=== PATIENT | female | born 1935 | race Caucasian/White ===

== ENCOUNTER 2017-02-04 13:20 | Inpatient (IN) | payer MEDICARE, BC ==
[~2017-02-04] VITALS: Ht 162.6 cm; Wt 46.3 kg
--- NOTE | 2017-02-04 13:40 | NUR ---
Pt is in room 1a, pt is confused and agitated and constantly attempting to get out of gurney. Son is at bedside, MSE pending.
[2017-02-04] MEDS ORDERED: LORAZEPAM 2 MG/1 ML VIAL IV ONE ×2 (14:15→15:00)
[2017-02-04] MEDS ORDERED: LORAZEPAM 2 MG/1 ML VIAL ONE ×3 (14:18→16:08)
[2017-02-04 14:46] LABS: BASOPHILS % (AUTO) 0.2 % (0.0-2.0); HEMATOCRIT 33.9 % (37-47); LYMPHOCYTES # (AUTO) 0.6 K/UL (0.8-4.8); MEAN CORPUSCULAR HEMOGLOBIN 31.6 UUG (27.0-31.0); MEAN CORPUSCULAR HGB CONC 33 g/dL (32.0-37.0); MEAN CORPUSCULAR VOLUME 96.9 FL (81.0-99.0); MONOCYTES # (AUTO) 0.7 K/UL (0.1-1.30); MONOCYTES % (AUTO) 15.3 % (0.0-11.0); NEUTROPHILS # (AUTO) 3.2 K/UL (1.8-8.9); NEUTROPHILS % (AUTO) 69.5 % (38.5-71.5); PLATELET COUNT (AUTO) 174 K/UL (150-450); WHITE BLOOD COUNT (AUTO) 4.5 K/UL (4.0-11.2)
[2017-02-04 14:48] LABS: CHLORIDE 107 mmol/L (98-107); CREATININE 0.8 mg/dL (0.6-1.3); GLUCOSE 96 mg/dL (74-106); POTASSIUM 4.2 mmol/L (3.5-5.1); UREA NITROGEN, BLOOD 29 mg/dL (7-18)
[2017-02-04 14:59] LABS: CARBON DIOXIDE 27 mmol/L (21-32)
[2017-02-04 15:02] LABS: *BILIRUBIN,URIN NEGATIVE (NEGATIVE); *BLOOD, URINE NEGATIVE (NEGATIVE); *CLARITY,URINE CLEAR (CLEAR); *COLOR,URINE DARK YELLOW (YELLOW); *KETONES,URINE 1+ (NEGATIVE); *PROTEIN,URINE NEGATIVE (NEGATIVE); *UROBILINOGEN,URINE 0.2 E.U./dl (NORMAL); LEUKOCYTE ESTERASE ,URINE NEGATIVE (NEGATIVE); NITRITE, URINE NEGATIVE (NEGATIVE); UGLUCOSE NEGATIVE (NEGATIVE)
[2017-02-04 15:04] LABS: ALKALINE PHOSPHATASE 30 U/L (50-136); BILIRUBIN,DIRECT 0.1 mg/dL (0.0-0.2); BILIRUBIN,TOTAL 0.5 mg/dL (0.1-1.0)
[2017-02-04 15:05] LABS: ALANINE AMINOTRANSFERASE 7 U/L (14-59); ASPARTATE AMINOTRANSFERASE 41 U/L (15-37); TOTAL PROTEIN, SERUM 5.8 g/dL (6.4-8.2)
[2017-02-04 15:21] LABS: RBC,URINE 0-3 /HPF (0-3); WBC,URINE 0-3 /HPF (0-3)
[2017-02-04 15:22] LABS: MUCUS,URINE MODERATE /LPF (0-FEW); SQUAMOUS EPITHELIAL CELL,UR FEW /HPF (NONE SEEN)
[2017-02-04] MEDS ORDERED: diphenhydrAMINE 50 MG/1 ML VIAL ONE (15:30)
[2017-02-04] MEDS ORDERED: diphenhydrAMINE 50 MG/1 ML VIAL IV ONE ×2 (15:30→16:00)
[2017-02-04 15:45] LABS: THYROID STIMULATING HORMONE 1.237 mIU/mL (0.358-3.740)
[2017-02-04] MEDS: LORAZEPAM 2 MG/1 ML VIAL IV ONE (15:59)
[2017-02-04] MEDS ORDERED: HALOPERIDOL LACTATE 5 MG/1 ML VIAL IV ONE (16:15)
[2017-02-04 16:22] LABS: BAND % (MANUAL) 5 % (0-10); EOSINOPHILS % (MANUAL) 2 % (0-8); LYMPHOCYTES % (MANUAL) 13 % (20-40); MONOCYTES % (MANUAL) 13 % (2-10); NEUTROPHILS % (MANUAL) 67 % (42-75)
[2017-02-04] MEDS ORDERED: HALOPERIDOL LACTATE 5 MG/1 ML VIAL ONE (16:32)
[2017-02-04] MEDS ORDERED: MEMA10TA PO (16:51)
[2017-02-04] MEDS ORDERED: MEGE400O PO (16:51)
[2017-02-04] MEDS ORDERED: MELO-105 PO (16:51)
[2017-02-04] MEDS ORDERED: MULT1TAB73 PO (16:51)
[2017-02-04] MEDS ORDERED: ENTA200T PO (16:51)
[2017-02-04] MEDS ORDERED: CHOL10005 PO (16:51)
[2017-02-04] MEDS ORDERED: GABA-532 PO (16:51)
[2017-02-04] MEDS ORDERED: QUET25TA PO ×3 (16:51)
[2017-02-04] MEDS ORDERED: CITA40TA11 PO (16:51)
[2017-02-04] MEDS ORDERED: CARB1TAB40 PO (16:51)
[2017-02-04] MEDS ORDERED: TRAZ-144 PO (16:55)
[2017-02-04] MEDS ORDERED: RIVA1PAT3 TP (16:55)
[2017-02-04] MEDS ORDERED: CYAN50008 SL (16:55)
--- NOTE | 2017-02-04 17:03 | NUR ---
Pt back from CT.
--- NOTE | 2017-02-04 17:56 | NUR ---
Per Dr Marroquin pt will be admitted to the hospital. Dr Marroquin spoke with pt's son about the plan of care. Son signed the patient property form and took all of pt's belongings home (including pt's w/c).
--- NOTE | 2017-02-04 18:15 | NUR ---
Per Dr Marroquin she spoke with Dr Tyson and pt may be admitted to tele. SBAR report given to Mesha DE LA ROSA via telephone.
--- NOTE | 2017-02-04 18:27 | NUR ---
Pt trans to tele, NAD noted.
--- NOTE | 2017-02-04 18:40 | NUR ---
ADMITTED VIA [facility]. CONFUSED & DEMENTED. ORIENTED TO ENVIRONMENT. UNABLE TO COMPREHEND.
[2017-02-04] MEDS ORDERED: TEMAZEPAM 15 MG CAPSULE PO PRN (19:00)
[2017-02-04] MEDS ORDERED: MAGNESIUM HYDROXIDE 30 ML LIQUID UDC PO PRN (19:00)
[2017-02-04] MEDS ORDERED: QUETIAPINE FUMARATE 25 MG TABLET PO PRN (19:00)
[2017-02-04] MEDS ORDERED: LORAZEPAM 2 MG/1 ML VIAL IV PRN (19:15)
[2017-02-04] MEDS ORDERED: TEMAZEPAM 7.5 MG CAPSULE PO PRN (19:30)
--- NOTE | 2017-02-04 19:30 | NUR ---
RECEIVED PT IN BED, ASLEEP BUT AROUSABLE TO TOUCH AND NAME. INITIATE ADMISSION ASSESSMENTS. BELONGING LIST REVIEWED. WILL REVIEW ORDERS.
[2017-02-04 20:12] VITALS: BP 117/52
[2017-02-04] MEDS: MEMANTINE HCL 10 MG TABLET PO SCH (20:47)
[2017-02-04] MEDS: ENTACAPONE 200 MG TABLET PO SCH (20:47)
[2017-02-04] MEDS: DOCUSATE SODIUM 100 MG CAPSULE PO SCH (20:47)
[2017-02-04] MEDS: GABAPENTIN 100 MG CAPSULE PO SCH (20:47)
[2017-02-04] MEDS: CARBIDOPA/LEVODOPA CR 50-200MG TABLET.SA PO SCH (20:49)
[2017-02-04] MEDS ORDERED: DOCUSATE SODIUM 250 MG CAPSULE PO SCH (21:00)
[2017-02-04] MEDS ORDERED: QUETIAPINE FUMARATE 25 MG TABLET PO SCH (21:00)
--- NOTE | 2017-02-04 22:00 | NUR ---
SON (dpoa) BROUGHT POLST FROM HOME, WANTS PT TO BE ON DNR/ DNI STATUS.
[2017-02-05 00:05] VITALS: BP 112/55
[2017-02-05 04:43] VITALS: BP 120/81
[2017-02-05] MEDS: PANTOPRAZOLE SODIUM 40 MG TABLET.DR PO SCH (06:04)
--- NOTE | 2017-02-05 06:30 | NUR ---
PT SLEEPING AT THIS TIME, AROUSABLE TO TOUCH. IN NO ACUTE SIGNS OF DISTRESS. NO EPISODES OF AGITATION. SON WAS HERE LAST NIGHT. ON TELE, SINUS ASHLEIGH, LOWEST WAS 44 BUT NOT SUSTAINED. IV SITE STILL INTACT. SAFETY MAINTAINED. BED ALARM ON.
[2017-02-05 07:36] LABS: BASOPHILS % (AUTO) 0.1 % (0.0-2.0); EOSINOPHILS # (AUTO) 0.1 K/uL (0.0-0.7); EOSINOPHILS % (AUTO) 2.2 % (0.0-7.0); HEMATOCRIT 34.4 % (37-47); HEMOGLOBIN 11.6 G/DL (12.0-16.0); LYMPHOCYTES # (AUTO) 0.7 K/UL (0.8-4.8); LYMPHOCYTES % (AUTO) 13.1 % (20.5-51.5); MEAN CORPUSCULAR HEMOGLOBIN 32.7 UUG (27.0-31.0); MEAN CORPUSCULAR HGB CONC 34 g/dL (32.0-37.0); MONOCYTES # (AUTO) 0.7 K/UL (0.1-1.30); MONOCYTES % (AUTO) 12.4 % (0.0-11.0); NEUTROPHILS # (AUTO) 4.2 K/UL (1.8-8.9); NEUTROPHILS % (AUTO) 72.2 % (38.5-71.5); PLATELET COUNT (AUTO) 165 K/UL (150-450); RED BLOOD CELL COUNT(AUTO) 3.55 MIL/UL (4.2-5.4)
[2017-02-05 07:38] LABS: WHITE BLOOD COUNT (AUTO) 5.7 K/UL (4.0-11.2)
--- NOTE | 2017-02-05 07:43 | NUR ---
RECEIVED PT ALERT WITH APPROPRIATE RESPONSE BUT WITH RESTLESSNESS AND TRYING TO GET OUT OF BED AND SINUS ASHLEIGH ON MONITOR. NO S/S OF SOB. SEROQUEL GIVEN FOR RESTLESSNESS AND WILL OBSERVE.
[2017-02-05 08:27] LABS: IRON, SERUM 79 ug/dL (50-175)
[2017-02-05 08:30] LABS: ALANINE AMINOTRANSFERASE 11 U/L (14-59); ALKALINE PHOSPHATASE 32 U/L (50-136); ASPARTATE AMINOTRANSFERASE 42 U/L (15-37); CARBON DIOXIDE 25 mmol/L (21-32); CHLORIDE 107 mmol/L (98-107); CHOLESTEROL 193 mg/dL (<200); CREATININE 0.7 mg/dL (0.6-1.3); GLUCOSE 75 mg/dL (74-106); HDL CHOLESTEROL 61 mg/dL (40-60); PHOSPHOROUS 2.8 mg/dL (2.5-4.9); POTASSIUM 3.7 mmol/L (3.5-5.1); TOTAL PROTEIN, SERUM 5.9 g/dL (6.4-8.2); TRIGLYCERIDES 61 MG/DL (30-150); UREA NITROGEN, BLOOD 19 mg/dL (7-18)
[2017-02-05] MEDS: CARBIDOPA/LEVODOPA CR 50-200MG TABLET.SA PO SCH ×3 (08:47→17:44)
[2017-02-05] MEDS: MEMANTINE HCL 10 MG TABLET PO SCH (08:47)
[2017-02-05] MEDS: ENTACAPONE 200 MG TABLET PO SCH ×3 (08:47→17:44)
[2017-02-05] MEDS: CHOLECALCIFEROL 1,000 UNIT TABLET PO SCH (08:47)
[2017-02-05] MEDS: ACETAMINOPHEN 325 MG TABLET PO PRN ×2 (08:49→21:01)
[2017-02-05] MEDS ORDERED: Medication Not On Formulary EA (Cholecalciferol (Vitamin D3) (Vitamin D CAPSULE) 1 CAP) PO SCH (09:00)
[2017-02-05] MEDS ORDERED: RIVASTIGMINE 9.5 MG/ 24 HR 9.5 MG PATCH TD SCH (09:00)
[2017-02-05] MEDS ORDERED: MELOXICAM 7.5 MG TABLET PO SCH (09:00)
[2017-02-05] MEDS ORDERED: MELOXICAM 7.5 MG TABLET PO PRN (09:00)
[2017-02-05 11:40] VITALS: BP 102/48
[2017-02-05 12:01] LABS: BILIRUBIN,TOTAL 0.6 mg/dL (0.2-1.0)
--- NOTE | 2017-02-05 13:00 | NUR ---
SEEN AND EXAMINED BY DR. LEAVITT SPOKE WITH SON ABOUT PLAN OF CARE. SEEN ALSO BY SPEECH THERAPY AND PT NOTED ABLE TO TOLERATE SOFT DIET AND THIN LIQUIDS.
--- NOTE | 2017-02-05 16:00 | NUR ---
NO ACUTE CHANGES. CONTINUE TELE OBSERVATION. SON AT BED SIDE VERY SUPPORTIVE WITH CARE.
[2017-02-05 16:15] VITALS: BP 101/59
[2017-02-05 20:00] VITALS: BP 109/57
[2017-02-05] MEDS ORDERED: HALOPERIDOL LACTATE 5 MG/1 ML VIAL IM PRN (21:00)
--- NOTE | 2017-02-05 21:00 | NUR ---
Seen & examined by Dr. Delcid (Psychiatrist). Patient's son in room.
[2017-02-05] MEDS: GABAPENTIN 100 MG CAPSULE PO SCH (21:01)
[2017-02-05] MEDS: DOCUSATE SODIUM 100 MG CAPSULE PO SCH (21:01)
[2017-02-06] VITALS: BP 110/49
[2017-02-06 04:00] VITALS: BP 113/48
[2017-02-06] MEDS: PANTOPRAZOLE SODIUM 40 MG TABLET.DR PO SCH (06:04)
[2017-02-06 08:28] LABS: BASOPHILS % (AUTO) 0.2 % (0.0-2.0); EOSINOPHILS # (AUTO) 0.1 K/uL (0.0-0.7); HEMATOCRIT 38.3 % (37-47); HEMOGLOBIN 12.9 G/DL (12.0-16.0); LYMPHOCYTES # (AUTO) 0.6 K/UL (0.8-4.8); LYMPHOCYTES % (AUTO) 8.9 % (20.5-51.5); MEAN CORPUSCULAR HEMOGLOBIN 32.3 UUG (27.0-31.0); MEAN CORPUSCULAR HGB CONC 34 g/dL (32.0-37.0); MONOCYTES # (AUTO) 0.8 K/UL (0.1-1.30); MONOCYTES % (AUTO) 12.1 % (0.0-11.0); NEUTROPHILS # (AUTO) 4.7 K/UL (1.8-8.9); NEUTROPHILS % (AUTO) 77.8 % (38.5-71.5); PLATELET COUNT (AUTO) 188 K/UL (150-450); RED BLOOD CELL COUNT(AUTO) 3.99 MIL/UL (4.2-5.4); WHITE BLOOD COUNT (AUTO) 6.2 K/UL (4.0-11.2)
[2017-02-06 08:42] LABS: CARBON DIOXIDE 28 mmol/L (21-32); CHLORIDE 105 mmol/L (98-107); CREATININE 0.9 mg/dL (0.6-1.3); GLUCOSE 84 mg/dL (74-106); MAGNESIUM 2.1 mg/dL (1.8-2.4); PHOSPHOROUS 2.8 mg/dL (2.5-4.9); POTASSIUM 3.3 mmol/L (3.5-5.1); UREA NITROGEN, BLOOD 15 mg/dL (7-18)
[2017-02-06] MEDS ORDERED: HALOPERIDOL 0.5 MG TABLET PO SCH (09:00)
[2017-02-06] MEDS: ENTACAPONE 200 MG TABLET PO SCH ×3 (09:10→18:05)
[2017-02-06] MEDS: CHOLECALCIFEROL 1,000 UNIT TABLET PO SCH (09:10)
[2017-02-06] MEDS: CARBIDOPA/LEVODOPA CR 50-200MG TABLET.SA PO SCH ×3 (09:10→18:05)
[2017-02-06] MEDS ORDERED: POTASSIUM PHOSPHATE MM 7.5 MMOL in IV DEXTROSE 5% 100 ML IV ONE (11:00)
[2017-02-06 12:52] VITALS: BP 127/60
[2017-02-06 16:24] VITALS: BP 131/56
--- NOTE | 2017-02-06 19:30 | NUR ---
End of shift note: pt is sleeping in bed comfortably. No s/s of respiratory distress noted, no pain noted. DVT pumps are on. Iv intact/patent. All safety needs are met. 1:1 sitter for safety, pt is calm and cooperative. Dr. Delcid and Dr. Borrego and Dr. Lozano saw the pt.
--- NOTE | 2017-02-06 20:00 | NUR ---
RECEIVED PATIENT AWAKE IN BED. ALERT TO SELF ONLY. CONFUSED AND DISORIENTED. NEEDS FREQUENT REDIRECTION. PATIENT TRIES TO CONSTANTLY GET OOB. SITTER AT BEDSIDE FOR SAFETY. BED ALARM ON. H/L INTACT AND PATENT. DENIES PAIN OR DISCOMFORT. NO RESP. DISTRESS NOTED. CALL LIGHT IN REACH, ALL NEEDS ATTENDED. WILL CONTINUE TO MONITOR AND ASSESS.
[2017-02-06] MEDS: DOCUSATE SODIUM 100 MG CAPSULE PO SCH (20:22)
[2017-02-06] MEDS: HALOPERIDOL 0.5 MG TABLET PO SCH (20:22)
[2017-02-06] MEDS: ACETAMINOPHEN 325 MG TABLET PO PRN (20:22)
[2017-02-06] MEDS: GABAPENTIN 100 MG CAPSULE PO SCH (20:22)
[2017-02-06 20:29] VITALS: BP 131/49
[2017-02-07 02:35] VITALS: BP 118/50
[2017-02-07 03:44] VITALS: BP 138/58
[2017-02-07] MEDS: PANTOPRAZOLE SODIUM 40 MG TABLET.DR PO SCH (06:36)
--- NOTE | 2017-02-07 06:55 | NUR ---
PATIENT AWAKE IN MERCED-CHAIR. VERY CONFUSED AND DISORIENTED. VSS. CALL LIGHT IN REACH. ALL NEEDS ATTENDED.
[2017-02-07] MEDS: HALOPERIDOL 0.5 MG TABLET PO SCH ×3 (08:28→17:53)
[2017-02-07] MEDS: CHOLECALCIFEROL 1,000 UNIT TABLET PO SCH (08:28)
[2017-02-07] MEDS: ENTACAPONE 200 MG TABLET PO SCH ×3 (08:28→17:53)
[2017-02-07] MEDS: CARBIDOPA/LEVODOPA CR 50-200MG TABLET.SA PO SCH ×3 (08:28→17:53)
[2017-02-07 09:00] VITALS: BP 118/66
[2017-02-07] MEDS ORDERED: QUETIAPINE FUMARATE 25 MG TABLET PO SCH (09:00)
[2017-02-07 15:30] VITALS: BP 124/55
--- NOTE | 2017-02-07 19:54 | NUR ---
PT IS SITTING ON A CHAIR COMFORTABLY. NO S/S OF RESPIRATORY DISTRESS NOTED. IV INTACT/PATENT. ALL SAFETY NEEDS ARE MET. SON IS BY THE PT.
--- NOTE | 2017-02-07 20:00 | NUR ---
PATIENT AWAKE, SITTING IN MERCED-CHAIR. PATIENT IS ALERT TO SELF. CONFUSED AND DISORIENTED, BUT CALM AND PLEASANT WHEN APPROACHED. SITTER AT BEDSIDE. VSS. NO S/S OF PAIN OR DISCOMFORT. NO RESP. DISTRESS NOTED. ALL NEEDS ATTENDED. WILL CONTINUE TO MONITOR.
[2017-02-07 20:30] VITALS: BP 125/56
[2017-02-07] MEDS: DOCUSATE SODIUM 100 MG CAPSULE PO SCH (20:33)
[2017-02-07] MEDS: GABAPENTIN 100 MG CAPSULE PO SCH (20:33)
[2017-02-07] MEDS ORDERED: HALO5VIA9 IM (20:40)
[2017-02-07] MEDS ORDERED: MEGE400O PO (20:40)
[2017-02-07] MEDS ORDERED: PANT40TA2 PO (20:40)
[2017-02-07] MEDS ORDERED: DOCU100C36 PO (20:40)
[2017-02-07] MEDS ORDERED: ACET325T53 PO (20:40)
[2017-02-07] MEDS ORDERED: TEMA7.5C PO (20:40)
[2017-02-07] MEDS ORDERED: MAGN400O6 PO (20:40)
[2017-02-07] MEDS ORDERED: HALO0.5T6 PO (20:40)
[2017-02-07] MEDS ORDERED: chlorproMAZINE 25 MG TABLET PO SCH (21:15)
--- NOTE | 2017-02-07 21:24 | NUR ---
REPORT GIVEN TO RN IN MENTAL HEALTH. VSS. PATIENT DISCHARGED TO MENTAL HEALTH IN STABLE CONDITION. .
[2017-02-08] MEDS ORDERED: chlorproMAZINE 25 MG TABLET PO SCH (13:00)
== END 2017-02-07 21:27 | DRG 92 ==
LOC: ER 13:20 → TELE 18:23 → MED 02-06 16:57
PROVIDERS: ADMIT Internal Medicine; ATTEND Internal Medicine
DX: G92 Toxic encephalopathy (principal); M80.08XA Age-related osteoporosis with current pathological fracture, vertebra(e), initial encounter for fracture; D68.59 Other primary thrombophilia; I31.3 Pericardial effusion (noninflammatory); G91.2 (Idiopathic) normal pressure hydrocephalus; E78.5 Hyperlipidemia, unspecified; G89.29 Other chronic pain; Z90.710 Acquired absence of both cervix and uterus; Z98.42 Cataract extraction status, left eye; Z98.41 Cataract extraction status, right eye; Z87.891 Personal history of nicotine dependence; Z88.6 Allergy status to analgesic agent; Z88.2 Allergy status to sulfonamides; R62.7 Adult failure to thrive; K59.00 Constipation, unspecified; K57.90 Diverticulosis of intestine, part unspecified, without perforation or abscess without bleeding; G31.83 Neurocognitive disorder with Lewy bodies; F02.80 Dementia in other diseases classified elsewhere, unspecified severity, without behavioral disturbance, psychotic disturbance, mood disturbance, and anxiety; J98.4 Other disorders of lung; I51.89 Other ill-defined heart diseases; Z86.73 Personal history of transient ischemic attack (TIA), and cerebral infarction without residual deficits; T43.95XA Adverse effect of unspecified psychotropic drug, initial encounter; Y92.239 Unspecified place in hospital as the place of occurrence of the external cause; Z82.49 Family history of ischemic heart disease and other diseases of the circulatory system; Z79.899 Other long term (current) drug therapy; F29 Unspecified psychosis not due to a substance or known physiological condition
CPT/HCPCS: 36415; 51702; 70030-TC; 70450; 71010; 83550; 83605; 83690; 83735; 84100; 84443; 85025; 85730; 86140; 87040; 87086; 92610; 93005; 93307; 97116; 97161; 97530; A4663; C1758; J1200; J1630; J2060; J3490; J7030; J7040; J7060

== ENCOUNTER 2017-02-07 22:12 | Inpatient (IN) | payer MEDICARE, BC ==
[~2017-02-07] VITALS: Ht 162.6 cm; Wt 42.6 kg
[~2017-02-07 22:12] MED LIST: ACET325T53 PO; CARB1TAB40 PO; CHOL10005 PO; CITA40TA11 PO; CYAN50008 SL; DOCU100C36 PO; ENTA200T PO; GABA-532 PO; HALO0.5T6 PO; HALO5VIA9 IM; MAGN400O6 PO; MEGE400O PO; MELO-105 PO; MEMA10TA PO; MULT1TAB73 PO; PANT40TA2 PO; QUET25TA PO; RIVA1PAT3 TP; TEMA7.5C PO; TRAZ-144 PO
[2017-02-07] MEDS ORDERED: MAG HYDROX/AL HYDROX/SIMETH 30 ML LIQUID UDC PO PRN (23:15)
[2017-02-07] MEDS ORDERED: ACETAMINOPHEN 325 MG TABLET PO PRN (23:15)
[2017-02-07] MEDS: TEMAZEPAM 7.5 MG CAPSULE PO PRN (23:39)
[2017-02-07] MEDS ORDERED: TEMAZEPAM 7.5 MG CAPSULE ONE (23:49)
[2017-02-07] MEDS: chlorproMAZINE 25 MG TABLET PO SCH (23:51)
[2017-02-08] MEDS ORDERED: chlorproMAZINE 25 MG TABLET ONE
[2017-02-08 00:39] VITALS: BP 120/61
--- NOTE | 2017-02-08 03:19 | NUR ---
NURSES NOTES/GPS; AT APPROX 2145 ON 02/07/14 PATIENT WAS ADMITTED TO GPS UNIT ROOM 138 BED A. PATIENT CAME FROM [facility] SURG SECOND FLOOR VIA MERCED CHAIR AND ACCOMPANIED BY RN AND SON BEAU GONZALEZ. ADMITTING DX AMS. REPORT WAS GIVEN BY RJ GAMA. PATIENT IS ON A 72HRS HOLD D/T GD. HOLD WILL BE UP ON 02/09/[address] TREVIÑO AND DR. BARRIENTOS WERE IN THE UNIT/HOSPITAL AT TIME OF ADMISSION.
[2017-02-08 07:30] VITALS: BP 122/56
[2017-02-08] MEDS: MULTIVITAMINS,THERAPEUTIC TABLET PO SCH (09:49)
[2017-02-08] MEDS: MEGESTROL ACETATE 400 MG/10 ML LIQUID UDC PO SCH (09:49)
[2017-02-08] MEDS: CHOLECALCIFEROL 1,000 UNIT TABLET PO SCH (09:49)
[2017-02-08] MEDS: CARBIDOPA/LEVODOPA CR 50-200MG TABLET.SA PO SCH ×3 (09:49→17:02)
[2017-02-08] MEDS: RIVASTIGMINE 9.5 MG/ 24 HR 9.5 MG PATCH TD SCH (09:49)
[2017-02-08] MEDS: PANTOPRAZOLE SODIUM 40 MG TABLET.DR PO SCH (09:55)
[2017-02-08] MEDS: ENTACAPONE 200 MG TABLET PO SCH ×3 (10:05→17:02)
[2017-02-08] MEDS: chlorproMAZINE 25 MG TABLET PO SCH ×3 (12:46→20:06)
[2017-02-08 15:51] VITALS: BP 109/52
[2017-02-08 20:06] VITALS: BP 106/62
[2017-02-08] MEDS: GABAPENTIN 100 MG CAPSULE PO SCH (20:06)
[2017-02-08] MEDS: DOCUSATE SODIUM 100 MG CAPSULE PO SCH (20:06)
[2017-02-08] MEDS: LORAZEPAM 1 MG TABLET PO PRN (21:55)
[2017-02-09] MEDS: TEMAZEPAM 7.5 MG CAPSULE PO PRN ×2 (00:36→23:23)
[2017-02-09] MEDS: PANTOPRAZOLE SODIUM 40 MG TABLET.DR PO SCH (06:29)
[2017-02-09 07:30] VITALS: BP 118/50
[2017-02-09] MEDS: RIVASTIGMINE 9.5 MG/ 24 HR 9.5 MG PATCH TD SCH (09:03)
[2017-02-09] MEDS: CARBIDOPA/LEVODOPA CR 50-200MG TABLET.SA PO SCH ×3 (09:03→16:20)
[2017-02-09] MEDS: MEGESTROL ACETATE 400 MG/10 ML LIQUID UDC PO SCH (09:03)
[2017-02-09] MEDS: CHOLECALCIFEROL 1,000 UNIT TABLET PO SCH (09:03)
[2017-02-09] MEDS: chlorproMAZINE 25 MG TABLET PO SCH ×3 (09:04→21:24)
[2017-02-09] MEDS: MULTIVITAMINS,THERAPEUTIC TABLET PO SCH (09:04)
[2017-02-09] MEDS: ENTACAPONE 200 MG TABLET PO SCH ×3 (09:04→16:20)
[2017-02-09] MEDS: MELOXICAM 7.5 MG TABLET PO PRN (15:41)
[2017-02-09 15:46] VITALS: BP 100/48
[2017-02-09 19:46] VITALS: BP 105/57
[2017-02-09] MEDS: DOCUSATE SODIUM 100 MG CAPSULE PO SCH (21:24)
[2017-02-09] MEDS: GABAPENTIN 100 MG CAPSULE PO SCH (21:24)
[2017-02-10] MEDS: LORAZEPAM 1 MG TABLET PO PRN (01:06)
[2017-02-10] MEDS: PANTOPRAZOLE SODIUM 40 MG TABLET.DR PO SCH (06:31)
--- NOTE | 2017-02-10 06:42 | NUR ---
GPS: Pt.only slept for about 3 1/2 hrs.last night despite taking sleeping pill. Restless and was trying to get out of bed for no reason. 1:1 sitter for safety. Assisted to the bathroom prn. Fall precautions observed. Reality re-orientation provided prn.
[2017-02-10 07:24] LABS: BASOPHILS % (AUTO) 0.2 % (0.0-2.0); EOSINOPHILS # (AUTO) 0.1 K/uL (0.0-0.7); EOSINOPHILS % (AUTO) 0.9 % (0.0-7.0); HEMATOCRIT 36.9 % (37-47); HEMOGLOBIN 12.6 G/DL (12.0-16.0); LYMPHOCYTES # (AUTO) 0.8 K/UL (0.8-4.8); LYMPHOCYTES % (AUTO) 10.5 % (20.5-51.5); MEAN CORPUSCULAR HEMOGLOBIN 32.8 UUG (27.0-31.0); MEAN CORPUSCULAR HGB CONC 34 g/dL (32.0-37.0); MEAN CORPUSCULAR VOLUME 96.1 FL (81.0-99.0); MONOCYTES # (AUTO) 1.1 K/UL (0.1-1.30); MONOCYTES % (AUTO) 14.1 % (0.0-11.0); NEUTROPHILS # (AUTO) 5.6 K/UL (1.8-8.9); NEUTROPHILS % (AUTO) 74.3 % (38.5-71.5); PLATELET COUNT (AUTO) 189 K/UL (150-450); RED BLOOD CELL COUNT(AUTO) 3.84 MIL/UL (4.2-5.4); WHITE BLOOD COUNT (AUTO) 7.6 K/UL (4.0-11.2)
[2017-02-10 07:30] VITALS: BP 115/52
[2017-02-10 07:41] LABS: ALANINE AMINOTRANSFERASE 6 U/L (14-59); ALKALINE PHOSPHATASE 41 U/L (50-136); ASPARTATE AMINOTRANSFERASE 24 U/L (15-37); BILIRUBIN,TOTAL 0.4 mg/dL (0.2-1.0); CARBON DIOXIDE 27 mmol/L (21-32); CHLORIDE 103 mmol/L (98-107); CREATININE 0.8 mg/dL (0.6-1.3); GLUCOSE 89 mg/dL (74-106); PHOSPHOROUS 2.5 mg/dL (2.5-4.9); POTASSIUM 3.6 mmol/L (3.5-5.1); TOTAL PROTEIN, SERUM 6.9 g/dL (6.4-8.2); UREA NITROGEN, BLOOD 20 mg/dL (7-18)
[2017-02-10] MEDS: ENTACAPONE 200 MG TABLET PO SCH ×3 (09:22→16:20)
[2017-02-10] MEDS: CHOLECALCIFEROL 1,000 UNIT TABLET PO SCH (09:22)
[2017-02-10] MEDS: CARBIDOPA/LEVODOPA CR 50-200MG TABLET.SA PO SCH ×3 (09:22→16:20)
[2017-02-10] MEDS: RIVASTIGMINE 9.5 MG/ 24 HR 9.5 MG PATCH TD SCH (09:22)
[2017-02-10] MEDS: MULTIVITAMINS,THERAPEUTIC TABLET PO SCH (09:22)
[2017-02-10] MEDS: MEGESTROL ACETATE 400 MG/10 ML LIQUID UDC PO SCH (09:23)
[2017-02-10] MEDS: chlorproMAZINE 25 MG TABLET PO SCH ×3 (09:23→20:27)
[2017-02-10 15:26] VITALS: BP 90/45
--- NOTE | 2017-02-10 15:47 | NUR ---
Initial discharge instructions: The patient resides at [facility] [[address] [place] [address]; ]. MOODY spoke with the patient's son Cristiano Palacio who stated that he would like for the patient to return to the [facility] upon discharge. Spoke with the business consult, Shanta Merino and she stated that they will accept the patient back once she is stable and ready for DC. MOODY will speak with the patient, family, and MD regarding most appropriate discharge plan. SS will form a safe and proper discharge.
[2017-02-10] MEDS: GABAPENTIN 100 MG CAPSULE PO SCH (20:27)
[2017-02-10] MEDS: DOCUSATE SODIUM 100 MG CAPSULE PO SCH (20:27)
[2017-02-10 20:56] VITALS: BP 103/54
[2017-02-11] MEDS: TEMAZEPAM 7.5 MG CAPSULE PO PRN (01:34)
[2017-02-11] MEDS: LORAZEPAM 1 MG TABLET PO PRN ×2 (02:28→21:55)
[2017-02-11] MEDS: PANTOPRAZOLE SODIUM 40 MG TABLET.DR PO SCH (06:18)
[2017-02-11] MEDS: CARBIDOPA/LEVODOPA CR 50-200MG TABLET.SA PO SCH ×3 (08:00→16:43)
[2017-02-11] MEDS: MEGESTROL ACETATE 400 MG/10 ML LIQUID UDC PO SCH (08:00)
[2017-02-11] MEDS: CHOLECALCIFEROL 1,000 UNIT TABLET PO SCH (08:00)
[2017-02-11] MEDS: MULTIVITAMINS,THERAPEUTIC TABLET PO SCH (08:00)
[2017-02-11] MEDS: RIVASTIGMINE 9.5 MG/ 24 HR 9.5 MG PATCH TD SCH (08:00)
[2017-02-11] MEDS: ENTACAPONE 200 MG TABLET PO SCH ×3 (08:00→16:43)
[2017-02-11] MEDS ORDERED: chlorproMAZINE 25 MG TABLET PO SCH ×2 (09:00→21:00)
[2017-02-11 09:19] VITALS: BP 117/57
[2017-02-11] MEDS: MAGNESIUM HYDROXIDE 30 ML LIQUID UDC PO PRN (09:30)
[2017-02-11 15:24] VITALS: BP 101/52
[2017-02-11 19:30] VITALS: BP 132/66
[2017-02-11] MEDS: GABAPENTIN 100 MG CAPSULE PO SCH (20:28)
[2017-02-11] MEDS: DOCUSATE SODIUM 100 MG CAPSULE PO SCH (20:28)
[2017-02-11] MEDS: QUETIAPINE FUMARATE 25 MG TABLET PO SCH (22:21)
[2017-02-11] MEDS ORDERED: QUETIAPINE FUMARATE 25 MG TABLET ONE (22:23)
[2017-02-12] MEDS: PANTOPRAZOLE SODIUM 40 MG TABLET.DR PO SCH (06:13)
[2017-02-12 07:30] VITALS: BP 103/42
[2017-02-12] MEDS: RIVASTIGMINE 9.5 MG/ 24 HR 9.5 MG PATCH TD SCH (09:19)
[2017-02-12] MEDS: MEGESTROL ACETATE 400 MG/10 ML LIQUID UDC PO SCH (09:19)
[2017-02-12] MEDS: QUETIAPINE FUMARATE 25 MG TABLET PO SCH ×2 (09:20→20:52)
[2017-02-12] MEDS: MULTIVITAMINS,THERAPEUTIC TABLET PO SCH (09:20)
[2017-02-12] MEDS: CHOLECALCIFEROL 1,000 UNIT TABLET PO SCH (09:20)
[2017-02-12] MEDS: CARBIDOPA/LEVODOPA CR 50-200MG TABLET.SA PO SCH ×3 (09:20→17:58)
[2017-02-12] MEDS: ENTACAPONE 200 MG TABLET PO SCH ×3 (09:21→17:58)
[2017-02-12 09:22] VITALS: BP 130/60
[2017-02-12 16:00] VITALS: BP 106/48
--- NOTE | 2017-02-12 19:11 | NUR ---
GPS/RN- SPOKE WITH DR BARRIENTOS REGARDING PRN ATIVAN CONCERN, SON WOULD LIKE HIS MOTHER THE PATIENT NOT TO BE ON ANY ATIVAN, PER DR BARRIENTOS OK TO DISCONTINUE ATIVAN PRN AND CONTINUE SEROQUEL 25MG Q6 HRS NEEDED FOR ANXIETY
[2017-02-12] MEDS ORDERED: QUETIAPINE FUMARATE 25 MG TABLET PO PRN (19:15)
[2017-02-12 20:16] VITALS: BP 96/55
[2017-02-12] MEDS: GABAPENTIN 100 MG CAPSULE PO SCH (20:52)
[2017-02-12] MEDS: DOCUSATE SODIUM 100 MG CAPSULE PO SCH (20:52)
[2017-02-13] MEDS: TEMAZEPAM 7.5 MG CAPSULE PO PRN ×2 (00:57→23:46)
[2017-02-13 01:58] LABS: *BILIRUBIN,URIN NEGATIVE (NEGATIVE); *BLOOD, URINE 1+ (NEGATIVE); *CLARITY,URINE SLIGHTLY CLOUDY (CLEAR); *COLOR,URINE YELLOW (YELLOW); *KETONES,URINE NEGATIVE (NEGATIVE); *PROTEIN,URINE NEGATIVE (NEGATIVE); *UROBILINOGEN,URINE 0.2 E.U./dl (NORMAL); LEUKOCYTE ESTERASE ,URINE 3+ (NEGATIVE); NITRITE, URINE NEGATIVE (NEGATIVE); PH,URINE 6.5 (5.0-8.0); UGLUCOSE NEGATIVE (NEGATIVE)
[2017-02-13 02:05] LABS: BACTERIA,URINE FEW /HPF (NONE SEEN); SQUAMOUS EPITHELIAL CELL,UR FEW /HPF (NONE SEEN); WBC,URINE TNTC /HPF (0-3)
[2017-02-13] MEDS: PANTOPRAZOLE SODIUM 40 MG TABLET.DR PO SCH (07:22)
[2017-02-13 07:30] VITALS: BP 116/50
[2017-02-13] MEDS: MEGESTROL ACETATE 400 MG/10 ML LIQUID UDC PO SCH (09:48)
[2017-02-13] MEDS: QUETIAPINE FUMARATE 25 MG TABLET PO SCH ×2 (09:48→20:36)
[2017-02-13] MEDS: RIVASTIGMINE 9.5 MG/ 24 HR 9.5 MG PATCH TD SCH (09:48)
[2017-02-13] MEDS: CARBIDOPA/LEVODOPA CR 50-200MG TABLET.SA PO SCH ×4 (09:48→18:27)
[2017-02-13] MEDS: CHOLECALCIFEROL 1,000 UNIT TABLET PO SCH (09:48)
[2017-02-13] MEDS: ENTACAPONE 200 MG TABLET PO SCH ×4 (09:53→18:27)
[2017-02-13 16:00] VITALS: BP 92/43
[2017-02-13] MEDS: CEPHALEXIN MONOHYDRATE 500 MG CAPSULE PO SCH (18:43)
[2017-02-13] MEDS: GABAPENTIN 100 MG CAPSULE PO SCH (20:36)
[2017-02-13] MEDS: MULTIVITAMINS,THERAPEUTIC TABLET PO SCH (20:37)
[2017-02-13] MEDS: DOCUSATE SODIUM 100 MG CAPSULE PO SCH (20:37)
[2017-02-13 20:56] VITALS: BP 100/50
[2017-02-14] MEDS: QUETIAPINE FUMARATE 25 MG TABLET PO PRN (01:33)
--- NOTE | 2017-02-14 01:35 | NUR ---
GPS: Pt.still awake and slightly agitated at this time despite taking Restoril 7.5mg PO for sleep at 2346. Angry and wants to get up from bed to look for her clothing. Re-directed prn. Safety emphasized. 1:1 sitter for safety. Will monitor closely. Addendum: 02/14/17 at 0236 by DONNA MONK LVN Seroquel 25 mg given for agitation. Will monitor effectiveness.
--- NOTE | 2017-02-14 02:43 | NUR ---
GPS: Pt.now asleep during rounds. In no acute distress noted. Sitter at bedside for safety.
[2017-02-14] MEDS: PANTOPRAZOLE SODIUM 40 MG TABLET.DR PO SCH (06:51)
[2017-02-14] MEDS: CEPHALEXIN MONOHYDRATE 500 MG CAPSULE PO SCH ×2 (06:51→18:42)
[2017-02-14 07:30] VITALS: BP 105/56
[2017-02-14] MEDS: ENTACAPONE 200 MG TABLET PO SCH ×3 (08:08→16:24)
[2017-02-14] MEDS: RIVASTIGMINE 9.5 MG/ 24 HR 9.5 MG PATCH TD SCH (08:08)
[2017-02-14] MEDS: QUETIAPINE FUMARATE 25 MG TABLET PO SCH ×2 (08:08→20:03)
[2017-02-14] MEDS: MEGESTROL ACETATE 400 MG/10 ML LIQUID UDC PO SCH (08:08)
[2017-02-14] MEDS: CARBIDOPA/LEVODOPA CR 50-200MG TABLET.SA PO SCH ×3 (08:08→16:24)
[2017-02-14] MEDS: CHOLECALCIFEROL 1,000 UNIT TABLET PO SCH (08:08)
[2017-02-14] MEDS: MELOXICAM 7.5 MG TABLET PO PRN (13:54)
[2017-02-14 15:46] VITALS: BP 102/49
[2017-02-14] MEDS: GABAPENTIN 100 MG CAPSULE PO SCH (20:03)
[2017-02-14] MEDS: MULTIVITAMINS,THERAPEUTIC TABLET PO SCH (20:03)
[2017-02-14] MEDS: DOCUSATE SODIUM 100 MG CAPSULE PO SCH (20:03)
[2017-02-14 20:52] VITALS: BP 112/56
[2017-02-14] MEDS: TEMAZEPAM 7.5 MG CAPSULE PO PRN (22:41)
[2017-02-15] MEDS: QUETIAPINE FUMARATE 25 MG TABLET PO PRN ×2 (00:16→12:34)
[2017-02-15] MEDS: CEPHALEXIN MONOHYDRATE 500 MG CAPSULE PO SCH ×2 (06:35→17:34)
[2017-02-15] MEDS: PANTOPRAZOLE SODIUM 40 MG TABLET.DR PO SCH (06:35)
[2017-02-15 07:30] VITALS: BP 126/65
[2017-02-15] MEDS: CHOLECALCIFEROL 1,000 UNIT TABLET PO SCH (08:28)
[2017-02-15] MEDS: RIVASTIGMINE 9.5 MG/ 24 HR 9.5 MG PATCH TD SCH (08:28)
[2017-02-15] MEDS: CARBIDOPA/LEVODOPA CR 50-200MG TABLET.SA PO SCH ×3 (08:28→17:02)
[2017-02-15] MEDS: ENTACAPONE 200 MG TABLET PO SCH ×3 (08:28→17:02)
[2017-02-15] MEDS: QUETIAPINE FUMARATE 25 MG TABLET PO SCH ×2 (08:28→20:24)
[2017-02-15] MEDS: MEGESTROL ACETATE 400 MG/10 ML LIQUID UDC PO SCH (08:29)
[2017-02-15 16:00] VITALS: BP 116/55
[2017-02-15] MEDS: MULTIVITAMINS,THERAPEUTIC TABLET PO SCH (20:23)
[2017-02-15] MEDS: DOCUSATE SODIUM 100 MG CAPSULE PO SCH (20:24)
[2017-02-15] MEDS: GABAPENTIN 100 MG CAPSULE PO SCH (20:24)
[2017-02-15 21:34] VITALS: BP 103/42
[2017-02-15] MEDS: TEMAZEPAM 7.5 MG CAPSULE PO PRN (22:50)
[2017-02-16] MEDS: QUETIAPINE FUMARATE 25 MG TABLET PO PRN ×2 (01:24→13:00)
[2017-02-16] MEDS: PANTOPRAZOLE SODIUM 40 MG TABLET.DR PO SCH (06:34)
[2017-02-16] MEDS: CEPHALEXIN MONOHYDRATE 500 MG CAPSULE PO SCH ×2 (06:34→17:32)
[2017-02-16 07:30] VITALS: BP 126/63
[2017-02-16] MEDS: ENTACAPONE 200 MG TABLET PO SCH ×3 (08:39→16:20)
[2017-02-16] MEDS: MEGESTROL ACETATE 400 MG/10 ML LIQUID UDC PO SCH (08:40)
[2017-02-16] MEDS: RIVASTIGMINE 9.5 MG/ 24 HR 9.5 MG PATCH TD SCH (08:40)
[2017-02-16] MEDS: CHOLECALCIFEROL 1,000 UNIT TABLET PO SCH (08:40)
[2017-02-16] MEDS: CARBIDOPA/LEVODOPA CR 50-200MG TABLET.SA PO SCH ×3 (08:40→16:19)
[2017-02-16] MEDS: QUETIAPINE FUMARATE 25 MG TABLET PO SCH ×2 (08:40→20:18)
[2017-02-16 16:00] VITALS: BP_SYST 88; BP_DIAS 0; BP_DIAS 45
[2017-02-16 17:55] VITALS: BP 111/54
[2017-02-16] MEDS: DOCUSATE SODIUM 100 MG CAPSULE PO SCH (20:18)
[2017-02-16] MEDS: GABAPENTIN 100 MG CAPSULE PO SCH (20:18)
[2017-02-16] MEDS: MULTIVITAMINS,THERAPEUTIC TABLET PO SCH (20:18)
[2017-02-16 20:49] VITALS: BP 117/58
[2017-02-16] MEDS: TEMAZEPAM 7.5 MG CAPSULE PO PRN (23:02)
[2017-02-17] MEDS: PANTOPRAZOLE SODIUM 40 MG TABLET.DR PO SCH (06:34)
[2017-02-17] MEDS: CEPHALEXIN MONOHYDRATE 500 MG CAPSULE PO SCH ×2 (06:34→18:02)
[2017-02-17 07:30] VITALS: BP 122/58
[2017-02-17] MEDS: CHOLECALCIFEROL 1,000 UNIT TABLET PO SCH (08:32)
[2017-02-17] MEDS: RIVASTIGMINE 9.5 MG/ 24 HR 9.5 MG PATCH TD SCH (08:32)
[2017-02-17] MEDS: CARBIDOPA/LEVODOPA CR 50-200MG TABLET.SA PO SCH ×3 (08:32→16:45)
[2017-02-17] MEDS: QUETIAPINE FUMARATE 25 MG TABLET PO SCH ×2 (08:32→20:47)
[2017-02-17] MEDS: ENTACAPONE 200 MG TABLET PO SCH ×3 (08:32→16:44)
[2017-02-17] MEDS: MEGESTROL ACETATE 400 MG/10 ML LIQUID UDC PO SCH (08:32)
[2017-02-17 15:28] VITALS: BP 112/60
[2017-02-17 19:29] LABS: *BILIRUBIN,URIN NEGATIVE (NEGATIVE); *BLOOD, URINE NEGATIVE (NEGATIVE); *CLARITY,URINE SLIGHTLY CLOUDY (CLEAR); *COLOR,URINE DARK YELLOW (YELLOW); *KETONES,URINE NEGATIVE (NEGATIVE); *PROTEIN,URINE NEGATIVE (NEGATIVE); *UROBILINOGEN,URINE 0.2 E.U./dl (NORMAL); LEUKOCYTE ESTERASE ,URINE 1+ (NEGATIVE); NITRITE, URINE POSITIVE (NEGATIVE); PH,URINE 6.5 (5.0-8.0); UGLUCOSE NEGATIVE (NEGATIVE)
[2017-02-17 19:45] LABS: BACTERIA,URINE MODERATE /HPF (NONE SEEN); RBC,URINE 0-3 /HPF (0-3); SQUAMOUS EPITHELIAL CELL,UR FEW /HPF (NONE SEEN); WBC,URINE 20-50 /HPF (0-3)
[2017-02-17 20:13] VITALS: BP 126/64
[2017-02-17] MEDS: GABAPENTIN 100 MG CAPSULE PO SCH (20:47)
[2017-02-17] MEDS: MULTIVITAMINS,THERAPEUTIC TABLET PO SCH (20:47)
[2017-02-17] MEDS: DOCUSATE SODIUM 100 MG CAPSULE PO SCH (20:47)
[2017-02-17] MEDS: AMOXICILLIN-CLAVUL 500-125MG TABLET PO SCH (21:06)
[2017-02-17] MEDS ORDERED: LEVOFLOXACIN 500 MG TABLET PO ONE (21:30)
--- NOTE | 2017-02-17 22:28 | NUR ---
GPS: Bladder scan done as ordered. PVR is 55ml. Denies any bladder discomfort at this time. Atb.therapy in progress for UTI. Fluids encouraged.
[2017-02-17] MEDS: TEMAZEPAM 7.5 MG CAPSULE PO PRN (23:27)
[2017-02-18] MEDS: PANTOPRAZOLE SODIUM 40 MG TABLET.DR PO SCH (06:32)
[2017-02-18 07:08] LABS: BASOPHILS % (AUTO) 0.3 % (0.0-2.0); EOSINOPHILS # (AUTO) 0.1 K/uL (0.0-0.7); EOSINOPHILS % (AUTO) 1.2 % (0.0-7.0); HEMATOCRIT 35.4 % (37-47); HEMOGLOBIN 11.8 G/DL (12.0-16.0); LYMPHOCYTES # (AUTO) 0.9 K/UL (0.8-4.8); LYMPHOCYTES % (AUTO) 10.8 % (20.5-51.5); MEAN CORPUSCULAR HEMOGLOBIN 32.4 UUG (27.0-31.0); MEAN CORPUSCULAR HGB CONC 33 g/dL (32.0-37.0); MEAN CORPUSCULAR VOLUME 96.9 FL (81.0-99.0); MONOCYTES # (AUTO) 0.7 K/UL (0.1-1.30); MONOCYTES % (AUTO) 9.2 % (0.0-11.0); NEUTROPHILS # (AUTO) 6.3 K/UL (1.8-8.9); NEUTROPHILS % (AUTO) 78.5 % (38.5-71.5); PLATELET COUNT (AUTO) 346 K/UL (150-450); RED BLOOD CELL COUNT(AUTO) 3.66 MIL/UL (4.2-5.4)
[2017-02-18 07:30] VITALS: BP 116/50
[2017-02-18 07:55] LABS: ALANINE AMINOTRANSFERASE 28 U/L (14-59); ALKALINE PHOSPHATASE 40 U/L (50-136); ASPARTATE AMINOTRANSFERASE 21 U/L (15-37); BILIRUBIN,TOTAL 0.2 mg/dL (0.2-1.0); CARBON DIOXIDE 26 mmol/L (21-32); CHLORIDE 108 mmol/L (98-107); CREATININE 1.1 mg/dL (0.6-1.3); GLUCOSE 130 mg/dL (74-106); MAGNESIUM 2.2 mg/dL (1.8-2.4); PHOSPHOROUS 3.7 mg/dL (2.5-4.9); POTASSIUM 3.9 mmol/L (3.5-5.1); TOTAL PROTEIN, SERUM 6.7 g/dL (6.4-8.2); UREA NITROGEN, BLOOD 38 mg/dL (7-18)
[2017-02-18] MEDS: MEGESTROL ACETATE 400 MG/10 ML LIQUID UDC PO SCH (08:42)
[2017-02-18] MEDS: MAGNESIUM HYDROXIDE 30 ML LIQUID UDC PO PRN (08:42)
[2017-02-18] MEDS: QUETIAPINE FUMARATE 25 MG TABLET PO SCH ×2 (08:43→20:14)
[2017-02-18] MEDS: ACIDOPHILUS/BULGARICUS CHEW TAB PO SCH ×2 (08:43→20:14)
[2017-02-18] MEDS: AMOXICILLIN-CLAVUL 500-125MG TABLET PO SCH (08:43)
[2017-02-18] MEDS: ENTACAPONE 200 MG TABLET PO SCH ×3 (08:43→16:32)
[2017-02-18] MEDS: RIVASTIGMINE 9.5 MG/ 24 HR 9.5 MG PATCH TD SCH (08:43)
[2017-02-18] MEDS: CHOLECALCIFEROL 1,000 UNIT TABLET PO SCH (08:43)
[2017-02-18] MEDS: CARBIDOPA/LEVODOPA CR 50-200MG TABLET.SA PO SCH ×3 (08:43→16:32)
[2017-02-18] MEDS: QUETIAPINE FUMARATE 25 MG TABLET PO PRN (12:54)
[2017-02-18 15:43] VITALS: BP 107/45
[2017-02-18] MEDS: AMOXICILLIN TRIHYDRATE 500 MG CAPSULE PO SCH (18:08)
--- NOTE | 2017-02-18 18:40 | NUR ---
GPS: Nursing Notes: Post Void residual: Bladder scan done, PVR = 200ml, denies any pain or discomfort of the bladder, continue to encourage fluids, continue with antibiotic treatment for UTI, continue to monitor V/S, continue with treatment plan. Addendum: 02/18/17 at 1859 by STELLA AMOS LVN GPS: Addendum Note: Post Void Correction: PVR=2ml, the above [id number] is incorrect, continue to deny any bladder discomfort, continue to monitor patient.
[2017-02-18 20:00] VITALS: BP 107/53
[2017-02-18] MEDS: LEVOFLOXACIN 250 MG TABLET PO SCH (20:14)
[2017-02-18] MEDS: GABAPENTIN 100 MG CAPSULE PO SCH (20:14)
[2017-02-18] MEDS: MULTIVITAMINS,THERAPEUTIC TABLET PO SCH (20:15)
[2017-02-18] MEDS ORDERED: LEVOFLOXACIN 500 MG TABLET PO SCH (20:15)
[2017-02-18] MEDS: DOCUSATE SODIUM 100 MG CAPSULE PO SCH (20:15)
[2017-02-18] MEDS ORDERED: LEVOFLOXACIN 250MG /D5W 250 MG in PREMIXED 1 EACH IV SCH (21:00)
[2017-02-18] MEDS ORDERED: AMOXICILLIN TRIHYDRATE 500 MG CAPSULE PO SCH (22:00)
[2017-02-18] MEDS: TEMAZEPAM 7.5 MG CAPSULE PO PRN (22:33)
[2017-02-19] MEDS: QUETIAPINE FUMARATE 25 MG TABLET PO PRN ×2 (01:31→12:14)
--- NOTE | 2017-02-19 01:33 | NUR ---
GPS: Pt. is awake,angry and agitated at this time. Easily irritable when being re-directed. Pt. continues to attempt to get out of bed. Poor safety awareness. Denies the need to go to the bathroom. Denies any discomfort. Seroquel 25 mg given PO for agitation/anxiety. Will monitor effectiveness. 1:1 sitter for safety.
[2017-02-19] MEDS: PANTOPRAZOLE SODIUM 40 MG TABLET.DR PO SCH (06:02)
--- NOTE | 2017-02-19 06:39 | NUR ---
GPS: PVR at this time is 80ml. Atb.therapy continues. Denies any bladder discomfort. Remains afebrile.
[2017-02-19 07:30] VITALS: BP 117/56
[2017-02-19] MEDS: MEGESTROL ACETATE 400 MG/10 ML LIQUID UDC PO SCH (08:19)
[2017-02-19] MEDS: ACIDOPHILUS/BULGARICUS CHEW TAB PO SCH ×2 (08:19→20:51)
[2017-02-19] MEDS: CHOLECALCIFEROL 1,000 UNIT TABLET PO SCH (08:19)
[2017-02-19] MEDS: QUETIAPINE FUMARATE 25 MG TABLET PO SCH (08:20)
[2017-02-19] MEDS: CARBIDOPA/LEVODOPA CR 50-200MG TABLET.SA PO SCH ×3 (08:20→16:56)
[2017-02-19] MEDS: ENTACAPONE 200 MG TABLET PO SCH ×3 (08:20→16:56)
[2017-02-19] MEDS: RIVASTIGMINE 9.5 MG/ 24 HR 9.5 MG PATCH TD SCH (08:20)
[2017-02-19] MEDS: AMOXICILLIN TRIHYDRATE 500 MG CAPSULE PO SCH ×2 (08:21→20:51)
[2017-02-19 16:00] VITALS: BP 108/52
--- NOTE | 2017-02-19 16:00 | NUR ---
GPS/RN - POST VOID RESIDUAL 10ML AT THIS TIME. CONTINUE TO MONITOR
[2017-02-19] MEDS: GABAPENTIN 100 MG CAPSULE PO SCH (20:37)
[2017-02-19] MEDS: MULTIVITAMINS,THERAPEUTIC TABLET PO SCH (20:37)
[2017-02-19] MEDS: LEVOFLOXACIN 250 MG TABLET PO SCH (20:41)
[2017-02-19] MEDS: DOCUSATE SODIUM 100 MG CAPSULE PO SCH (20:41)
[2017-02-19] MEDS: CLONAZEPAM 0.5 MG TABLET PO SCH (20:47)
[2017-02-19] MEDS: QUETIAPINE FUMARATE 100 MG TABLET PO SCH (20:47)
[2017-02-19 20:48] VITALS: BP 123/55
--- NOTE | 2017-02-19 22:00 | NUR ---
received to care, sitting in day room, watching tv, with peers. 1; 1 sitter remains at side, for safety. compliant with medications and staff direction. as of 2199, she is asleep, in bed. sitter remains at side. no distress noted. will continue to monitor closely.
--- NOTE | 2017-02-20 04:00 | NUR ---
POST VOID RESIDUAL NOTE/ pt was assisted to the bathroom, and she voided. post void residual was 21 ml, per bladder scanner.
--- NOTE | 2017-02-20 06:00 | NUR ---
slept 5.5 hours. continues to sleep, but is easy to awaken. no distress noted. will continue to monitor closely.
[2017-02-20] MEDS: PANTOPRAZOLE SODIUM 40 MG TABLET.DR PO SCH (06:59)
[2017-02-20 07:30] VITALS: BP 126/63
[2017-02-20] MEDS: AMOXICILLIN TRIHYDRATE 500 MG CAPSULE PO SCH ×2 (08:18→20:17)
[2017-02-20] MEDS: CARBIDOPA/LEVODOPA CR 50-200MG TABLET.SA PO SCH ×3 (08:18→17:28)
[2017-02-20] MEDS: QUETIAPINE FUMARATE 25 MG TABLET PO SCH (08:18)
[2017-02-20] MEDS: MEGESTROL ACETATE 400 MG/10 ML LIQUID UDC PO SCH (08:18)
[2017-02-20] MEDS: ENTACAPONE 200 MG TABLET PO SCH ×3 (08:18→17:28)
[2017-02-20] MEDS: ACIDOPHILUS/BULGARICUS CHEW TAB PO SCH ×2 (08:18→20:40)
[2017-02-20] MEDS: RIVASTIGMINE 9.5 MG/ 24 HR 9.5 MG PATCH TD SCH (08:19)
[2017-02-20] MEDS: CHOLECALCIFEROL 1,000 UNIT TABLET PO SCH (08:19)
[2017-02-20 16:04] VITALS: BP 111/52
[2017-02-20 19:30] VITALS: BP 106/50
[2017-02-20] MEDS: DOCUSATE SODIUM 100 MG CAPSULE PO SCH (20:13)
[2017-02-20] MEDS: GABAPENTIN 100 MG CAPSULE PO SCH (20:14)
[2017-02-20] MEDS: CLONAZEPAM 0.5 MG TABLET PO SCH (20:14)
[2017-02-20] MEDS: QUETIAPINE FUMARATE 100 MG TABLET PO SCH (20:14)
[2017-02-20] MEDS: LEVOFLOXACIN 250 MG TABLET PO SCH (20:14)
[2017-02-20] MEDS: MULTIVITAMINS,THERAPEUTIC TABLET PO SCH (20:14)
--- NOTE | 2017-02-20 22:00 | NUR ---
received to care, lying in bed. 1; 1 sitter remains at side, for safety. compliant with medications and staff direction. as of 0, she is asleep, in bed. sitter remains at side. no distress noted. will continue to monitor closely.
--- NOTE | 2017-02-21 06:00 | NUR ---
POST VOID RESIDUAL NOTE/ pt was assisted to the bathroom, and she voided. post void residual was 220 ml, per bladder scanner.
[2017-02-21] MEDS: PANTOPRAZOLE SODIUM 40 MG TABLET.DR PO SCH (06:02)
--- NOTE | 2017-02-21 06:30 | NUR ---
slept 5.25 hours. assisted with shower, and AM care. no distress noted. will continue to monitor closely.
[2017-02-21 07:30] VITALS: BP 124/59
--- NOTE | 2017-02-21 08:29 | NUR ---
DC Note: The patient will be discharged today back to [facility] [ [place] [address]; ]. MOODY spoke with the patient's son/DPMIMI Palacio who stated that he will hop picker the patient at 2:00 pm via private car and take her to the [facility]. MOODY spoke with the behavioral health assistant, Shanta Merino and she stated that they will accept the patient today. The patient will follow-up with her primary care physician Dr. Sheldon Wray . She does not have a psychiatrist and may follow-up with Dr. Frances Oh , Dr. Roel Anderson , or Dr. Migel Laurent .
[2017-02-21] MEDS: MEGESTROL ACETATE 400 MG/10 ML LIQUID UDC PO SCH (09:20)
[2017-02-21] MEDS: CARBIDOPA/LEVODOPA CR 50-200MG TABLET.SA PO SCH ×2 (09:21→13:09)
[2017-02-21] MEDS: ENTACAPONE 200 MG TABLET PO SCH ×2 (09:21→13:08)
[2017-02-21] MEDS: RIVASTIGMINE 9.5 MG/ 24 HR 9.5 MG PATCH TD SCH (09:21)
[2017-02-21] MEDS: QUETIAPINE FUMARATE 25 MG TABLET PO SCH (09:21)
[2017-02-21] MEDS: CHOLECALCIFEROL 1,000 UNIT TABLET PO SCH (09:21)
[2017-02-21] MEDS: ACIDOPHILUS/BULGARICUS CHEW TAB PO SCH (09:21)
[2017-02-21] MEDS: AMOXICILLIN TRIHYDRATE 500 MG CAPSULE PO SCH (09:24)
--- NOTE | 2017-02-21 12:34 | NUR ---
patient c/o nausea vss gave pt maalox 30cc po with good effect after 15 minutes1;1 sitter for safety
--- NOTE | 2017-02-21 14:48 | NUR ---
GPS/NURSING/DISCHARGE PT IS BEING PICKED UP BY HER SON/TIM BEAU GONZALEZ TO BE TAKEN TO [facility]. PT IS AWARE AND WILLING TO GO. NO DISTRESS NOTED. SON SIGNED THE PAPERWORK. ALL BELONGINGS RETURNED. DISCHARGE INSTRUCTIONS ARE GIVEN, SON VERBALIZES UNDERSTANDING.
== END 2017-02-21 14:35 | DRG 885 ==
LOC: GPS 22:12
PROVIDERS: ADMIT Psychiatry & Neurology Psychiatry; ATTEND Internal Medicine
DX: F29 Unspecified psychosis not due to a substance or known physiological condition (principal); F02.81 Dementia in other diseases classified elsewhere, unspecified severity, with behavioral disturbance; B95.2 Enterococcus as the cause of diseases classified elsewhere; F01.51 Vascular dementia, unspecified severity, with behavioral disturbance; Z68.1 Body mass index [BMI] 19.9 or less, adult; N39.0 Urinary tract infection, site not specified; D68.59 Other primary thrombophilia; I31.3 Pericardial effusion (noninflammatory); G91.2 (Idiopathic) normal pressure hydrocephalus; M48.34 Traumatic spondylopathy, thoracic region; I50.32 Chronic diastolic (congestive) heart failure; Z66 Do not resuscitate; Z86.73 Personal history of transient ischemic attack (TIA), and cerebral infarction without residual deficits; Z88.2 Allergy status to sulfonamides; G30.9 Alzheimer's disease, unspecified; R62.7 Adult failure to thrive; B96.5 Pseudomonas (aeruginosa) (mallei) (pseudomallei) as the cause of diseases classified elsewhere; Z98.42 Cataract extraction status, left eye; Z98.41 Cataract extraction status, right eye; Z74.09 Other reduced mobility; E78.5 Hyperlipidemia, unspecified; J84.10 Pulmonary fibrosis, unspecified; K57.90 Diverticulosis of intestine, part unspecified, without perforation or abscess without bleeding; K59.00 Constipation, unspecified; F41.9 Anxiety disorder, unspecified; G31.83 Neurocognitive disorder with Lewy bodies; M48.50XS Collapsed vertebra, not elsewhere classified, site unspecified, sequela of fracture; G89.21 Chronic pain due to trauma; F32.9 Major depressive disorder, single episode, unspecified
CPT/HCPCS: 36415; 83735; 84100; 85025; 87077; 87086; 93005; 97110; 97116; 97161; 97530; A4663; J8999; Q0161